=== PATIENT | female | born 2005 | race Caucasian/White ===

== ENCOUNTER 2024-12-13 15:25 | Outpatient (CLI) | payer MEDICAID, SELFPAY ==
--- OUTSIDE RECORDS SUMMARY | 2024-12-13 15:27 | XMS_ITS | Data Portability ---
Author Organization [facility],, Main Office Address [address] [place] [address] Assessment Encounter Date Assessment Date Assessment LastModified by Organization Details LastModified Time 07/07/2023 07/07/2023 Annual gynecological exam performed. Patient will come back in a year unless there are new symptoms. [email or web address] Not available 07/07/2023 09:35:47 07/11/2024 07/11/2024 Annual gynecological exam performed. Patient will come back in a year unless there are new symptoms. [email or web address] Not available 07/11/2024 15:37:17 10/26/2024 10/26/2024 Patient presented for medication refill. Patient tolerating medication well at current dose without adverse effects. Refilled as below. Discussed plan with patient, who expressed understanding. Follow up as noted below. [email or web address] Not available 10/29/2024 12:12:22 Plan of Treatment Reminders Order Date Submit Date Provider Last Modified By Organization Details Last Modified Time Details Appointments ANNUAL JOURNEYMAN MOLDER 2024 03:30P GIGI Friedman Not available Not available Not available Lab urinalysi s, dipstick 2024 025 [facility] Main Office, [address], [place], [address], 10/26/2024 16:24:40 test, urine 2024 025 [facility] Main Office, [address], [place], [address], 10/26/2024 16:24:40 urinalysi s, dipstick 2022 023 [facility] Main Office, [address], [place], [address], 07/07/2023 21:37:00 test, urine 2022 023 [facility] Main Office, [address], [place], [address], 07/07/2023 21:37:00 urinalysi s, dipstick 2022 023 [place] Main Office, [address], [place], [address], 04/21/2023 12:09:40 test, urine 2022 023 [facility] Office, [address], [place], [address], 04/21/2023 12:09:00 urinalysi s, dipstick 2022 023 [facility] Main Office, [address], [place], [address], 03/05/2023 17:52:00 test, urine 2022 023 [facility] Main Office, [address], [place], [address], 03/05/2023 17:52:00 Referral None recorded. Procedures None recorded. Surgeries None recorded. Imaging None recorded. Medication Orders .5 () 1.5 mg-30 mcg (21)/75 mg (7) tablet 2024 025 [facility], [address] [place], [address], 12/13/2024 11:49:35 09/12 (28) 1 mg-20 mcg (21)/75 mg (7) tablet 2022 023 [facility], [address] [place], [address], 07/11/2024 15:46:46 Patient TargetsNo targets recorded. Patient InstructionsNo instructions recorded. Reason for Referral None Reported. Results Created Date Observation Date Name Description Value Unit Range Abnormal Flag Note LastModifiedBy Organization Detail LastModifiedTime 02/18/2002/17/2023 urina lysis , dipst ick Leukocytes trace Not Available Main Of fice [address], [place], [address], 02/17/2023 10:11:13 02/18/20 23 02/17/2023 urina lysis , dipst ick Nitrite negati ve Not Available Main Office [address], [place], [address], 02/17/2023 10:11:13 02/18/20 23 02/17/2023 urina lysis , dipst ick Urobilinogen - Not Available Main Office [address], [place], [address], 02/17/2023 10:11:13 02/18/20 23 02/17/2023 urina lysis , dipst ick Protein - Not Available Main Offic e [address], [place], [address], 02/17/2023 10:11:13 02/18/20 23 02/17/2023 urina lysis , dipst ick pH 6.0 Not Available Main Offic e [address], [place], [address], 02/17/2023 10:11:13 02/18/20 23 02/17/2023 urina lysis , dipst ick Blood - Not Available Main Offic e [address], [place], [address], 02/17/2023 10:11:13 02/18/20 23 02/17/2023 urina lysis , dipst ick Specific De Pere 1.005 Not Available Main O ffice [address], [place], [address], 02/17/2023 10:11:13 02/18/20 23 02/17/2023 urina lysis , dipst ick Ketone - Not Available Main Offic e [address], [place], [address], 02/17/2023 10:11:13 02/18/20 23 02/17/2023 urina lysis , dipst ick Bilirubin - Not Available Main Off ice [address], [place], [address], 02/17/2023 10:11:13 02/18/20 23 02/17/2023 urina lysis , dipst ick Glucose - Not Available Main Offic e [address], [place], [address], 02/17/2023 10:11:13 02/18/20 23 02/17/2023 pregn atul test, urine HCG negati ve Not Available Main Office [address], [place], [address], 02/17/2023 10:11:22 04/21/20 23 04/21/2023 pregn atul test, urine HCG positi ve Not Available Main Office [address], [place], [address], 04/21/2023 10:15:49 04/21/20 23 04/21/2023 urina lysis , dipst ick Leukocytes - Not Available Main Of fice [address], [place], [address], 04/21/2023 10:15:20 04/21/20 23 04/21/2023 urina lysis , dipst ick Nitrite negati ve Not Available Main Office [address], [place], [address], 04/21/2023 10:15:20 04/21/20 23 04/21/2023 urina lysis , dipst ick Urobilinogen - Not Available Main Office [address], [place], [address], 04/21/2023 10:15:20 04/21/20 23 04/21/2023 urina lysis , dipst ick Protein - Not Available Main Offic e [address], [place], [address], 04/21/2023 10:15:20 04/21/20 23 04/21/2023 urina lysis , dipst ick pH 6.0 Not Available Main Offic e [address], [place], [address], 04/21/2023 10:15:20 04/21/20 23 04/21/2023 urina lysis , dipst ick Blood - Not Available Main Offic e [address], [place], [address], 04/21/2023 10:15:20 04/21/20 23 04/21/2023 urina lysis , dipst ick Specific De Pere 1.005 Not Available Main O ffice [address], [place], [address], 04/21/2023 10:15:20 04/21/20 23 04/21/2023 urina lysis , dipst ick Ketone - Not Available Main Offic e [address], [place], [address], 04/21/2023 10:15:20 04/21/20 23 04/21/2023 urina lysis , dipst ick Bilirubin - Not Available Main Off ice [address], [place], [address], 04/21/2023 10:15:20 04/21/20 23 04/21/2023 urina lysis , dipst ick Glucose - Not Available Main Offic e [address], [place], [address], 04/21/2023 10:15:20 07/07/20 23 07/08/2023 PAP TEST THIN PREP Pap test thin prep Negati ve for Intrae pithel ial Lesion or Malign atul normal ACCES KWESI #: [id number] Sourc e: Cervi monika/E ndoce rvica l LMP: [id number] Date Taken : 07/07 Speci men Type: ThinP rep Vial Date Repor caden: 07/08 Clini monika Data: Last Pap: wnl (1108 2021) Cytot ech: Fatou Ames, CT( CP) Date Repor caden: 07/08 Speci men Adequ acy: Satis facto ry for evalu ation Endoc ervic al/tr ansfo rmati on zone compo nent prese nt Gener al Categ oriza tion: NEGAT LYLY FOR INTRA EPITH ELIAL LESIO N OR MALIG ALEIDA This speci men has been samira zed by the ThinP rep Imagi ng Syste m, an inter activ e compu ter syste m which conrad ts the lab in the [facility] of ThinP rep Pap Test slide s. Follo wing imagi ng, the slide was revie wed by a Cytot echno logis t and/o r Patho logis t. End of Repor t Techn ical servi geraldo provi ded by [facility], [employer], d/b/a Lindsey jarrett, [address] [place] [address] Bryson Hernández MD, Labor atory Direc tor. Case revie wed and diagn osis rende red at [facility], [employer], d/b/a Lindsye jarrett, [address] [place] [address] Bryson Hernández MD, Labor atory Direc tor. CONFI DENTI AL Not Available [facility]) [address], [place], [address], 07/08/2023 20:16:15 07/07/20 23 07/07/2023 pregn atul test, urine HCG negati ve Not Available Main Office [address], [place], [address], 07/07/2023 09:37:59 07/07/2007/07/2023 urina lysis , dipst ick Leukocytes - Not Available Main Of fice [address], [place], [address], 07/07/2023 09:37:52 07/07/2007/07/2023 urina lysis , dipst ick Nitrite negati ve Not Available Main Office [address], [place], [address], 07/07/2023 09:37:52 07/07/2007/07/2023 urina lysis , dipst ick Urobilinogen - Not Available Main Office [address], [place], [address], 07/07/2023 09:37:52 07/07/2007/07/2023 urina lysis , dipst ick Protein - Not Available Main Offic e [address], [place], [address], 07/07/2023 09:37:52 07/07/2007/07/2023 urina lysis , dipst ick pH 6.0 Not Available Main Offic e [address], [place], [address], 07/07/2023 09:37:52 07/07/2007/07/2023 urina lysis , dipst ick Blood - Not Available Main Offic e [address], [place], [address], 07/07/2023 09:37:52 07/07/20 23 07/07/2023 urina lysis , dipst ick Specific De Pere 1.030 Not Available Main O ffice [address], [place], [address], 07/07/2023 09:37:52 07/07/20 23 07/07/2023 urina lysis , dipst ick Ketone - Not Available Main Offic e [address], [place], [address], 07/07/2023 09:37:52 07/07/20 23 07/07/2023 urina lysis , dipst ick Bilirubin - Not Available Main Off ice [address], [place], [address], 07/07/2023 09:37:52 07/07/20 23 07/07/2023 urina lysis , dipst ick Glucose - Not Available Main Offic e [address], [place], [address], 07/07/2023 09:37:52 07/11/20 24 07/13/2024 PAP TEST THIN PREP Pap test thin prep Negati ve for Intrae pithel ial Lesion or Malign atul normal ACCES KWESI #: [id number] [facility] e: Cervi monika/E ndoce rvica l LMP: [id number] Date Taken : 07/11 Speci men Type: ThinP rep Vial Date Repor caden: 07/13 Clini monika Data: Last Pap: wnl (1113 2022) Cytot ech: Ophelia Enciso , FLAQUITO( CP) Date Repor caden: 07/13 Speci men Adequ acy: Satis facto ry for evalu ation Endoc ervic al/tr ansfo rmati on zone compo nent prese nt Gener al Categ oriza tion: NEGAT LYLY FOR INTRA EPITH ELIAL LESIO N OR MALIG ALEIDA Comme nts/R ecomm endat ions: Blood prese nt This speci men has been samira zed by the Thin rep Imagi ng Syste m, an inter activ e compu ter syste m which conrad ts the lab in the [facility] of ThinP rep Pap Test slide s. Follo wing imagi ng, the slide was revie wed by a Cytot echno logis t and/o r Patho logis t. End of Repor t Techn ical servi geraldo provi ded by [facility] log[facility] [employer], [facility], [address] [place] [address] Sathya ovalle MD, Merged With [facility] atory Dire tor. Case revie wed and diagn osis rende red at [facility] Patho logis [facility], d[facility]b/a [facility], [address] [place] [address] Sathya ovalle MD, Labor atory Dire tor. CONFI DENTI AL Not Available [facility] ([facility]) [address], [place], [address], 07/13/2024 11:57:56 07/11/20 24 07/16/2024 TERESA STENE BERLIN androstenedi one 1.295 NG/mL 0.260- 2.140 INTER PRETI VE INFOR MATIO N: Teresa stene berlin , Femal es 18 years and older Post- menop ausal : 0.13- 0.82 ng/mL Acces s compl ete set of age- and/o r gende r-spe cific refer ence inter vals for this test in the [employer] [facility] Direc tory ([employer] lab.c om). This test was devel oped and its perfo rmanc e kiesha cteri stics deter mined by [facility] atori es. It has not been clear ed or appro yoshi by the US Food and Drug Admin istra tion. This test was perfo rmed in a CLIA certi fied labor atory and is inten ded for clini monika purpo ses. Perfo rmed By: [facility] at[facility] es [address] [place] [address] Labor atory Direc tor: Ramiro bruce MD, PhD CLIA Numbe r: [id number] Not Available [facility]) [facility] [address], [place], [address], 07/16/2024 12:17:56 07/11/20 24 07/12/2024 TESTO STERO NE, FREE, BIOAV AILAB LE, AND TOTAL AND SHBG testosterone total 31.90 NG/dL 8.00-4 8.00 Not Available [facility] ([facility]) [facility] [address], [place], [address], 07/16/2024 12:17:57 07/11/20 24 07/12/2024 TESTO STERO NE, FREE, BIOAV AILAB LE, AND TOTAL AND SHBG sex hormone binding globulin (shbg) 34.4 nmol/ L 24.6-1 22.0 Not Available [facility] ([facility]) [address] [place] [address] [address], [place], [address], 07/16/2024 12:17:57 07/11/20 24 07/12/2024 TESTO STERO NE, FREE, BIOAV AILAB LE, AND TOTAL AND SHBG free testosterone , percent 1.72 % 1.60-2 .90 Not Available [facility] ([facility]) [address] [place] [address] [address], [place], [address], 07/16/2024 12:17:57 07/11/20 24 07/12/2024 TESTO STERO NE, FREE, BIOAV AILAB LE, AND TOTAL AND SHBG free testosterone (calculation ) 5 pg/mL 1-7 Not Available [facility] ([facility]) [address], [place], [address], 07/16/2024 12:17:57 07/11/20 24 07/12/2024 TESTO STERO NE, FREE, BIOAV AILAB LE, AND TOTAL AND SHBG testosterone bioavailable 13 NG/dL 2-21 Not Available [facility] ([facility]) [address] [place] [address] [address], [place], [address], 07/16/2024 12:17:57 07/11/20 24 07/12/2024 PROLA CTIN prolactin 13.40 NG/mL 4.79-2 3.30 Not Available [facility] ([facility]) [address] [place] [address] [address], [place], [address], 07/16/2024 12:17:58 07/11/20 24 07/12/2024 PROGE STERO NE progesterone 4.48 NG/mL Proge stero ne Refer ence Range Healt hy women Folli cular phase 0.057 - 0.893 Ovula tion phase 0.121 - 12.0 Lutea l phase 1.83 - 23.9 Postm enopa use <0.05 - 0.126 Healt hy pregn ant women 1st trime ster 11.0 - 44.3 2nd trime ster 25.4 - 83.3 3rd trime ster 58.7 - 214 Not Available [facility] ([facility]) [address] [place] [address] [address], [place], [address], 07/16/2024 12:17:58 07/11/20 24 07/12/2024 LUTEI NIZIN G HORMO NE luteinizing hormone 12.50 mIU/m L LH Refer ence Range Men: 1.7 - 8.6 Women : Folli cular phase 2.4 - 12.6 Ovula tion phase 14.0 - 95.6 Lutea l phase 1.0 - 11.4 Postm enopa use 7.7 - 58.5 Not Available [facility]) [address] [place] [address] [address], [place], [address], 07/16/2024 12:17:59 07/11/20 24 07/12/2024 FSH FSH 4.34 mIU/m L FSH Refer ence Range Men: 1.5 - 12.4 Women : Folli cular phase 3.5 - 12.5 Ovula tion phase 4.7 - 21.5 Lutea l phase 1.7 - 7.7 Postm enopa use 25.8 - 134.8 Not Available [facility]) [address] [place] [address] [address], [place], [address], 07/16/2024 12:17:59 07/11/20 24 07/12/2024 ESTRA DIOL estradiol 94 pg/mL Estra diol Refer ence Range Healt hy women Folli cular phase 12.4 - 233 Ovula tion phase 41.0 - 398 Lutea l phase 22.3 - 341 Postm enopa use <5 - 138 Healt hy pregn ant women 1st trime ster 154 - 3243 2nd trime ster 1561 - 95843 3rd trime ster 8525 - >3000 0 Not Available [facility] ([facility]) [address] [place] [address] [address], [place], [address], 07/16/2024 12:18:00 07/11/20 24 07/12/2024 TSH TSH 1.86 mU/L 0.43-5 .25 Not Available [facility]) [address] [place] [address] [address], [place], [address], 07/16/2024 12:18:00 07/11/20 24 07/12/2024 THYRO XINE FREE (FREE T4) thyroxine free (free T4) 1.19 NG/dL 0.86-1 .76 Not Available [facility]) [address] [place] [address] [address], [place], [address], 07/16/2024 12:18:01 07/11/20 24 07/12/2024 INSUL IN TOTAL RANDO M insulin total random 17.5 uIU/m L 2.6-24 .9 Not Available [facility] ([facility]) [address], [place], [address], 07/16/2024 12:18:01 07/11/20 24 07/12/2024 DHEA- SULFA TE DHEA-sulfate 238 ug/dL 148-40 7 Not Available [facility] ([facility]) [address], [place], [address], 07/16/2024 12:18:02 07/11/20 24 07/12/2024 BETA- HCG, SERUM , (WALTER TITAT LYLY) beta-HCG, serum, (quantitativ e) <1 mIU/m L hCG Refer ence Range s: Male: <0.2- 2.6 mIU/m L Nonpr egnan t Femal e: <0.2- 5 mIU/m L Post- menop ausal Femal e: <0.2- 8.3 mIU/m L Aruna l Pregn atul hCG Range s: Week 3: 5.8-7 1.2 mIU/m L Week 4: 9.5-7 50 mIU/m L Week 5: 217-7 138 mIU/m L Week 6: 158-3 1795 mIU/m L Week 7: 3697- 26829 3 mIU/m L Week 8: [address] -[address] 71 mIU/m L Week 9: [address] 10 mIU/m L Week 10: [address] 77 mIU/m L Week 12: [address] -[address] 12 mIU/m L Week 14: [address] 0 mIU/m L Week 15: [address] 1 mIU/m L Week 16: 6640- 70591 mIU/m L Week 17: 8294- 31381 mIU/m L Week 18: 6699- 25029 mIU/m L Not Available [facility] ([facility]) [address], [place], [address], 07/16/2024 12:18:02 07/11/20 24 07/12/2024 ANTI MULLE RHYS HORMO NE anti mullerian hormone 3.92 NG/mL 1.22-1 1.70 Not Available [facility] ([facility]) [address], [place], [address], 07/16/2024 12:18:03 07/11/20 24 07/15/2024 17-HY DROXY PROGE STERO NE 17-hydroxypr ogesterone 120.30 NG/dL <=206. 00 INTER PRETI VE INFOR MATIO N for 17-Hy droxy proge stero ne in femal es: Folli cular 15 to 70 ng/dL Lutea l 35 to 290 ng/dL Acces s compl ete set of age- and/o r gende r-spe cific refer ence inter vals for this test in the [place] [facility]ire[facility] tory ([employer] lab.c om). This test was devel oped and its perfo rmanc e kiesha cteri stics deter mined by [employer] [facility] atori es. It has not been clear ed or appro yoshi by the US Food and Drug Admin istra tion. This test was perfo rmed in a CLIA certi fied labor atory and is inten ded for clini monika purpo ses. Perfo rmed By: [facility] atori es [address] [place] [address] Labor atory Direc tor: Ramiro bruce MD, PhD CLIA Numbe r: [id number] Not Available [facility] ([facility]) [address], [place], [address], 07/16/2024 12:18:03 10/27/19 25 10/26/2024 urina lysis , dipst ick Leukocytes - Not Available Main Of fice [address], [place], [address], 10/26/2024 15:59:37 10/27/19 25 10/26/2024 urina lysis , dipst ick Nitrite negati ve Not Available Main Office [address], [place], [address], 10/26/2024 15:59:37 10/27/19 25 10/26/2024 urina lysis , dipst ick Urobilinogen - Not Available Main Office [address], [place], [address], 10/26/2024 15:59:37 10/27/19 25 10/26/2024 urina lysis , dipst ick Protein - Not Available Main Offic e [address], [place], [address], 10/26/2024 15:59:37 10/27/19 25 10/26/2024 urina lysis , dipst ick pH 6.0 Not Available Main Offic e [address], [place], [address], 10/26/2024 15:59:37 10/27/19 25 10/26/2024 urina lysis , dipst ick Blood uric acid- 50 Not Available Main Office [address], [place], [address], 10/26/2024 15:59:37 10/27/19 25 10/26/2024 urina lysis , dipst ick Specific De Pere 1.010 Not Available Main O ffice [address], [place], [address], 10/26/2024 15:59:37 10/27/19 25 10/26/2024 urina lysis , dipst ick Ketone - Not Available Main Offic e [address], [place], [address], 10/26/2024 15:59:37 10/27/19 25 10/26/2024 urina lysis , dipst ick Bilirubin - Not Available Main Off ice [address], [place], [address], 10/26/2024 15:59:37 10/27/19 25 10/26/2024 pregn atul test, urine HCG negati ve Not Available Main Office [address], [place], [address], 10/26/2024 15:59:41 Result Notes None recorded. Problems No Known Problems Procedures Surgical History Date Name Laterality Status Provider Name and Address Organization Details Recorded Time Date of Last Pap Smear completed Zahraa Davey [facility], 07/11/2024 15:37:59 extraction of wisdom tooth completed Roxane Lux [facility], 06/12/2021 14:54:31 Imaging Results None recorded. Procedure Notes None recorded. Medical Equipment None Reported. Allergies No known drug allergies Medications Name Sig Start Date Stop Date Status Note LastModified by Organization Details LastModified Time amoxicillin 500 mg capsule TAKE ONE CAPSULE BY MOUTH THREE TIMES DAILY FOR 10 DAYS 07/11 completed Not Available Not Available Not Available promethazin e-DM 6.25 mg-15 mg/5 mL oral syrup Take 1 teaspoonf ul by mouth every 6 hours as needed for cough 07/11 completed Not Available Not Available Not Available neomycin-po lymyxin-hyd rocort 3.5 mg/mL-10,00 0 unit/mL-1 % ear solution INSTILL 10 DROPS INTO BOTH EARS BY OTIC ROUTE EVERY 6 HOURS FOR 10 DAYS 07/11 completed Not Available Not Available Not Available prednisone 10 mg tablet 06/12 completed Not Available Not Available Not Available azithromyci n 250 mg tablet TAKE 2 TABLETS BY MOUTH ON DAY 1, THEN TAKE 1 TABLET DAILY ON DAYS 2-5 07/11 completed Not Available Not Available Not Available fluconazole 150 mg tablet TAKE 1 TABLET BY MOUTH ONCE DAILY 07/02 completed Not Available Not Available Not Available prednisone 20 mg tablet TAKE ONE TABLET BY MOUTH THREE TIMES DAILY FOR 3 DAYS active Not Available Not Available No t Available metronidazo le 500 mg tablet Take 1 tablet every 12 hours by oral route for 7 days. 07/02 completed Not Available Not Available Not Available norethindro ne 1 mg-ethinyl estradiol 20 mcg (21)-iron 75 mg (7) tablet TAKE ONE TABLET BY MOUTH ONCE DAILY 07/11 completed Not Available Not Available Not Available sulfamethox azole 800 mg-trimetho prim 160 mg tablet TAKE 1 TABLET BY MOUTH TWICE DAILY 07/02 completed Not Available Not Available Not Available guaifenesin 200 mg tablet 07/02 completed Not Available Not Available Not Available meloxicam 7.5 mg tablet TAKE ONE TABLET BY MOUTH EVERY DAY active Not Available Not Available No t Available phenazopyri dine 100 mg tablet 06/12 completed Not Available Not Available Not Available oseltamivir 75 mg capsule 07/02 completed Not Available Not Available Not Available bromphenira mine-pseudo ephedrine-D M 2 mg-30 mg-10 mg/5 mL oral syrup 07/02 completed Not Available Not Available Not Available amoxicillin 500 mg-potassiu m clavulanate 125 mg tablet 06/12 completed Not Available Not Available Not Available neomycin-po lymyxin-hyd rocort 3.5 mg-10,000 unit/mL-1 % ear drops,susp instil FOUR DROPS into affected ear(s) three times daily 07/11 completed Not Available Not Available Not Available cyclobenzap rine 5 mg tablet t1tr BY MOUTH THREE TIMES DAILY NEEDED active Not Available Not Available No t Available .01/20 (28) 1.5 mg-30 mcg (21)/75 mg (7) tablet Take 1 tablet every day by oral route. active Not Available Not Available No t Available nitrofurant oin monohydrate /macrocryst als 100 mg capsule 06/12 completed Not Available Not Available Not Available Vitals Date Recorded Body height Body mass index (BMI) Body mass index (BMI) Percentile per age and sex Body weight Heart rate Body temperature Systolic blood pressure Diastolic blood pressure Provider Name and Address Organization Details Last Updated DateTime 3 165.1 cm 36.1 kg/m2 97 % 54766.5 4 g 71 /min 97.2 [degF] 110 mm[Hg] 68 mm[Hg] [facility], 3 10:10:31 Date Recorded Body height Body mass index (BMI) Body mass index (BMI) Percentile per age and sex Body weight Heart rate Body temperature Systolic blood pressure Diastolic blood pressure Provider Name and Address Organization Details Last Updated DateTime 3 165.1 cm 36.6 kg/m2 97 % 49003.6 g 68 /min 97 [degF] 111 mm[Hg] 76 mm[Hg] [facility], 3 10:14:53 Date Recorded Body height Body mass index (BMI) Body mass index (BMI) Percentile per age and sex Body weight Heart rate Body temperature Systolic blood pressure Diastolic blood pressure Provider Name and Address Organization Details Last Updated DateTime 3 165.1 cm 36.8 kg/m2 97 % 138097. 91 g 68 /min 97.5 [degF] 106 mm[Hg] 74 mm[Hg] [facility], 3 09:36:12 Date Recorded Body height Body mass index (BMI) Body weight Heart rate Body temperature Systolic blood pressure Diastolic blood pressure Provider Name and Address Organization Details Last Updated DateTime 4 165.1 cm 37.4 kg/m2 342706. 28 g 70 /min 97.5 [degF] 106 mm[Hg] 76 mm[Hg] [facility], 4 15:37:35 Date Recorded Body height Body mass index (BMI) Body weight Heart rate Body temperature Systolic blood pressure Diastolic blood pressure Provider Name and Address Organization Details Last Updated DateTime 5 165.1 cm 37.9 kg/m2 333825. 62 g 71 /min 97.3 [degF] 116 mm[Hg] 73 mm[Hg] [facility], 5 15:59:06 Social History Question Answer Notes LastModified by Organizat ion Details LastModified Time Tobacco Smoking Status Never Smoker Roxane Lux [facility], 06/12/2021 14:43:00 Do You Have An Advance Directive? No [email or web address] Information n ot available 06/12/2021 What Is Your Level Of Alcohol Consumption? None Information not available 06/12/2021 Are You Currently Sexually Active With Anyone Who Has Traveled (within The Last 12 Weeks) To A Zika-affected Area? No [email or web address] Information not available 06/12/2021 Are You Blind Or Do You Have Difficulty Seeing? No [email or web address] Information n ot available 06/12/2021 Is Blood Transfusion Acceptable In An Emergency? Yes [email or web address] Information not available 06/12/2021 Are You Or Have You Been Involved With Bullying? No [email or web address] Information not available 06/12/2021 What Is Your Level Of Caffeine Consumption? None [email or web address] Information not available 06/12/2021 What Type Of Lobbyist Do You Use? None [email or web address] Information not available 06/12/2021 In The 14 Days Before Symptom Onset, Have You Had Close Contact With A Laboratory-confirm ed COVID-19 While That Case Was Ill? No Information n ot available 04/21/2023 In The 14 Days Before Symptom Onset, Have You Had Close Contact With A Person Who Is Under Investigation For COVID-19 While That Person Was Ill? No Information not available 04/21/2023 Have You Been To An Area Known To Be High Risk For COVID-19? No Information not available 04/21/2023 Are You Currently Employed? Yes [email or web address] Information not available 06/12/2021 Are You Deaf Or Do You Have Serious Difficulty Hearing? No [email or web address] Information not available 06/12/2021 What Type Of Diet Are You Following? REGULAR [email or web address] Information n ot available 06/12/2021 Have You Processed Blood Or Body Fluids From An Ebola Virus Disease Patient Without Appropriate PPE? No [email or web address] Information not available 06/12/2021 Do You Reside In Or Have You Traveled To An Area Where Ebola Virus Transmission Is Active? No [email or web address] Information not available 06/12/2021 What Is The Highest Grade Or Level Of School You Have Completed Or The Highest Degree You Have Received? [id number] [email or web address] Information not available 06/12/2021 Have There Been Any Changes To Your Family Or Social Situation? No Information no t available 06/12/2021 What Is The Fluoride Status Of Your Home? Unknown Information not available 06/12/2021 Are There Any Guns Present In Your Home? No [email or web address] Information not available 06/12/2021 Have You Recently Or Are You Planning To Travel To An Area With Zika Virus? No [email or web address] Information not available 06/12/2021 What Is Your Home Situation? Other [email or web address] Information not available 06/12/2021 Do You Use Insect Repellent Routinely? No [email or web address] Information not available 06/12/2021 Do You Have A Medical Power Of Remote Sensing Technologist? No [email or web address] Information not available 06/12/2021 What Was The Date Of Your Most Recent Tobacco Screening? 06/12/2021 Information not available 04/21/2023 How Many Children Do You Have? 0 [email or web address] Information not available 06/12/2021 Do You Have Any Pets? No [email or web address] Information not available 06/12/2021 Do You Use Protection During Sex? Always Information not available 06/12/2021 What Is Your Relationship Status? Single [email or web address] Information not available 06/12/2021 Are You Sexually Active? Yes [email or web address] Information not available 06/12/2021 Do You Have Smoke And Carbon Monoxide Detectors In Your Home? Yes [email or web address] Information not available 06/12/2021 Are You Passively Exposed To Smoke? No [email or web address] Information no t available 06/12/2021 Are There Any Smokers In Your House? No [email or web address] Information not available 06/12/2021 Do You Feel Stressed (tense, Restless, Nervous, Or Anxious, Or Unable To Sleep At Night)? [id number] [email or web address] Information not available 06/12/2021 Do You Use Any Illicit Or Recreational Drugs? No Information not available 04/21/2023 Do You Use Sunscreen Routinely? No Information not available 06/12/2021 Has Tobacco Cessation Counseling Been Provided? No [email or web address] Information not available 06/12/2021 Sex: Female Functional Status Question Answer Note LastModified by Organizat ion Details LastModified Time Do you have difficulty walking or climbing stairs? No Information not available 06/12/2021 Do you have transportation difficulties? No [email or web address] Information not available 06/12/2021 Are you able to walk? YESWOREST [email or web address] Information not available 06/12/2021 Do you have difficulty doing errands alone? No [email or web address] Information not available 06/12/2021 Are you able to care for yourself? Yes [email or web address] Information n ot available 06/12/2021 Do you have difficulty dressing or bathing? No [email or web address] Information not available 06/12/2021 What is your exercise level? Occasional [email or web address] Information not available 06/12/2021 Mental Status Question Answer Note LastModified by Organization D etails LastModified Time Do you have difficulty concentrating, remembering or making decisions? No [email or web address] Information no t available 06/12/2021 Family History Relationship Description Onset Age of this Age Resolved Age Notes LastModified by Organization Details LastModified Time Father Diabetes mellitus [email or web address] Not available 05/25 14:41:52 Medical History Condition Response Coronary Artery Disease N Other N Gout N Blood Diseases N Kidney Stones N Hyperthyroidism N Enlarged Prostate N Blood Transfusion N Dermatologic Disorders N Depression N COPD N Gestational Diabetes N Anxiety Disorder N Autoimmune disease N Muscle, Joint, or Bone Problems N Obesity N Vision or Eye Problems N Arthritis N Infertility N Polyps N Mental Disorder N Cancer N Varicosities N Stroke N Neurologic/Epilepsy N Headaches N Fibromyalgia N Kidney Disease N Heart Problems N Ear or Hearing Problems N Hospitalizations N Acne N Eating Disorder N Skin Problems N MRSA exposure N Constipation N Heartburn N Art (IVF or FET) N Bladder Problems N Bleeding Disorder N Tuberculosis N AIDS/HIV N G.E.R.D N Asthma N Trauma/Violence N Hepatitis N Pulmonary Embolism N Chronic Ear Infections N Chicken Pox N Autism Spectrum Disorder (ASD) N Thrombophilias N Allergies (Food, seasonal, environmental ) N Colon Cancer N Drug/Latex Allergies/Reactions N Breast Cancer N Lung Disease N Hypothyroidism N Defects or Inherited Disease N Developmental or Behavioral Disorders N Breast Problem N Difficulty Swallowing N Hematologic disorders N Anesthesia Complications N History of STI N Deep Vein Thrombosis N Polycystic ovary syndrome N Meniere's disease N History of abnormal pap N Endometriosis N High Cholesterol N Liver Disease N Allergies/Hayfever N Kidney Problems N Thyroid Problems N GI Problems N ADD/ADHD N Anemia N Mental Illness N Psychiatric Illness N Diabetes N Ovarian Cancer N Pulmonary (TB, Asthma) N Seizures/Epilepsy N Congestive Heart Failure (CHF) N Hyperlipidemia N Eczema N Diverticulitis N Abuse/Domestic Violence N Depression/ depression N Heart Disease N Hypertension N Pre-Eclampsia N Osteoporosis N Gynecological History Statement/Question Response Abnormal Pap N Flow Moderate Date of LMP 06/20/2024 STIs/STDs N HPV Vaccine N Duration of Flow (days) 5 Age at Menarche 11 Current Control Method BCPs Frequency of Cycle (Q days) 28 Sexually Active? Y Menses Monthly Y Date of Last Pap Smear 07/11/2024 Sexual Problems? N LMP Definite Obstetrics History GPAL:G 0 P 0 0 0 0 Past Encounters Encounter ID Performer Location Encounter Start Date Encounter Closed Date Diagnosis/Indication Diagnosis SNOMED-CT Code Diagnosis ICD10 Code Diagnosis Note [id number] Martin Landaverde DO Main Office [address] [place] [address] 06/12/2021 14:23:46 06/12/2021 15:28:14 Gynecologic examination 86555889 Z01.411 pap Venereal d isease screening 630918638 Z11.3 cx/vag panel Education about sexually transmitted disease prevention 804063666 Z70.8 Vaginal di scharge problem 470834475 N89.8 Bacterial vaginosis 4197 99144 N76.0 Screening for mental disorders 371399542 Z13.89 [id number] Martin Landaverde DO Main Office [address] [place] [address] 07/02/2022 08:32:46 07/02/2022 09:09:35 Gynecologic examination 87447288 Z01.411 pap Screening for mental disorders 461899872 Z13.89 [id number] Martin Landaverde DO Main Office [address] [place] [address] 10/22/2022 09:43:21 10/22/2022 10:33:36 Cyst of right ovary 1121097502 6013652 N83.[address] TV u/s scheduled. Pain in pelvis 76162493 R10.2 mild, intermitte nt at this time. [id number] Martin Landaverde DO Main Office [address] [place] [address] 10/29/2022 08:51:35 10/29/2022 09:41:16 Pain in pelvis 62954513 R10.2 Cyst of right ovary 1223 626398 7309025 N83.291 Contracept ion care management 780820338 Z30.011 [id number] Martin Landaverde DO Main Office [address] [place] [address] 12/24/2022 13:34:10 12/24/2022 13:53:59 Pain in pelvis 33358920 R10.2 Cyst of right ovary 1223 683452 6701601 N83.291 Contracept ion care management 290604782 Z30.011 [id number] Martin Landaverde DO Main Office [address] [place] [address] 02/17/2023 10:07:48 02/17/2023 10:36:05 Pain in pelvis 48578592 R10.2 Large ovary 61970478 N83 .8 Cyst of left ovary 56737 73474 5641066 N83.292 [id number] Martin Landaverde DO Main Office [address] [place] [address] 04/21/2023 10:00:05 04/21/2023 10:53:29 Cyst of left ovary 8955620755 0973633 N83.292 improved Large ovary 10766078 N83 .8 [id number] Martin Landaverde DO Main Office [address] [place] [address] 07/07/2023 09:29:14 07/07/2023 09:51:35 Gynecologic examination 11807916 Z01.419 pap Screening for mental disorders 887889360 Z13.89 Renewal of prescription 948550915 Z76.0 [id number] Martin Landaverde DO Main Office [address] [place] [address] 07/11/2024 15:18:50 07/11/2024 15:59:04 Gynecologic examination 66150515 Z01.419 pap [id number] Martin Landaverde Main Office [address] [place] [address] 10/26/2024 15:48:15 10/26/2024 16:25:30 Renewal of prescription 105221511 Z76.0 Secondary dysmenorrhea 91129419 N94.5 contolled with new BC rx Pain in pelvis 29493889 R10.2 mild, intermitte nt at this time. Health Concerns Section Related Observation LastModified by Organization Detai ls LastModified Time None Recorded Concern Status LastModified by Organization Details LastModified Time None Recorded Advance Directives Directive N: Payers Encounter Date Sequence Insurance Name Policy Number Policy Hughes Covered Member ID Hughes Member ID Guarantor Name 02/17/2023 1 [place] [facility] [id number] Luisa [facility] 04/21/2023 1 [place] [facility] [id number] [facility] 07/07/2023 1 [place] [facility] [id number] [employer] [facility] 07/11/2024 1 [place] [id number] Luisa [facility] [id number] [employer] [facility] 10/26/2024 1 [facility]MEDICAID [facility]PLAC[facility] - [facility] Luisa [facility] [id number] [facility] Notes Date Note Type Note Provider Name and Address Organization Details Recorded Time 07/07/2023 text/html Annual GYNReport ed bypatient.History: no gynecologic complaints; no change in interval history Menstrual cycle:Normal menses Urinary symptoms:No hematuria; No incontinence Vulva:No genital lesion Vagina:Normal vaginal discharge Breast:No breast pain; No breast lump; No nipple discharge Current Contraception:Sati sfied with current contraception; Monogamous relationship Sexual complaints:No sexual complaints; No pain during intercourse; Normal libido Menopausal Symptoms:No menopausal symptoms; Normal vaginal lubrication Psychological symptoms:No depression; No anxiety; No PMDD Preventive measures:Followed with yearly pap smears DO [address], [place], [address], [facility], 07/07/2023 21:37:03 07/11/2024 text/html Annual GYNReport ed bypatient.History: was being followed for ovarian cysts while on low dose ocps. ran out of ocps last month. no pain since then Menstrual cycle:Normal menses Urinary symptoms:No hematuria; No incontinence Vulva:No genital lesion Vagina:Normal vaginal discharge Breast:No breast pain; No breast lump; No nipple discharge Sexual complaints:No sexual complaints; No pain during intercourse; Normal libido Menopausal Symptoms:No menopausal symptoms; Normal vaginal lubrication Psychological symptoms:No depression; No anxiety; No PMDD Preventive measures:Followed with yearly pap smears DO [address], [place], [address], [facility], 08/13/2024 10:02:03 10/26/2024 text/html f/u on new control pills. was having some painful periods and possible ovarian cysts and pain. changed BC. No problems since then. DO [address], [place], [address], [facility], 10/29/2024 12:13:13 OBGyn Episode No OBEpisode recorded.
--- OUTSIDE RECORDS SUMMARY | 2024-12-13 15:27 | XMS_ITS | Continuity of Care Document ---
Author Organization [facility],, Main Office Address [address] [place] [address] Assessment Encounter Date Assessment Date Assessment LastModified by Organization Details LastModified Time 10/26/2024 10/26/2024 Patient presented for medication refill. Patient tolerating medication well at current dose without adverse effects. Refilled as below. Discussed plan with patient, who expressed understanding . Follow up as noted below. [email or web address] Not available 10/29/2024 12:12:22 Plan of Treatment Reminders Order Date Submit Date Provider Last Modified By Organization Details Last Modified Time Details Appointments ANNUAL BLACKSMITH ASSISTANT 2024 03:30P GIGI Friedman Not available Not available Not available Lab urinalysi s, dipstick 2024 025 telma Main Office, [address], [place], [address], 10/26/2024 16:24:40 test, urine 2024 025 talia Main Office, [address], [place], [address], 10/26/2024 16:24:40 Referral None recorded. Procedures None recorded. Surgeries None recorded. Imaging None recorded. Medication Orders 1.5/30 (28) 1.5 mg-30 mcg (21)/75 mg (7) tablet 2024 025 AIMEE [facility], [address] [place], [address], 12/13/2024 11:49:35 Patient TargetsNo targets recorded. Patient InstructionsNo instructions recorded. Reason for Referral None Reported. Results Created Date Observation Date Name Description Value Unit Range Abnormal Flag Note LastModifiedBy Organization Detail LastModifiedTime 10/27/19 25 10/26/2024 urina lysis , dipst ick Leukocytes - Not Available Main Of fice [address], [place], [address], 10/26/2024 15:59:37 10/27/19 25 10/26/2024 urina lysis , dipst ick Nitrite negati ve Not Available Main Office [address], [place], [address], 10/26/2024 15:59:37 10/27/19 25 10/26/2024 urina lysis , dipst ick Urobilinogen - Not Available Main Office [address], [place], [address], 10/26/2024 15:59:37 10/27/19 25 10/26/2024 urina lysis , dipst ick Protein - Not Available Main Offic e [address], [place], [address], 10/26/2024 15:59:37 10/27/19 25 10/26/2024 urina lysis , dipst ick pH 6.0 Not Available Main Offic e [address], [place], [address], 10/26/2024 15:59:37 10/27/19 25 10/26/2024 urina lysis , dipst ick Blood uric acid- 50 Not Available Main Office [address], [place], [address], 10/26/2024 15:59:37 10/27/19 25 10/26/2024 urina lysis , dipst ick Specific Dameron 1.010 Not Available Main O ffice [address], [place], [address], 10/26/2024 15:59:37 10/27/19 25 10/26/2024 urina lysis , dipst ick Ketone - Not Available Main Offic e [address], [place], [address], 10/26/2024 15:59:37 10/27/19 25 10/26/2024 urina lysis , dipst ick Bilirubin - Not Available Main Off ice [address], [place], [address], 10/26/2024 15:59:37 10/27/19 25 10/26/2024 pregn atul test, urine HCG negati ve Not Available Main Office [address], [place], [address], 10/26/2024 15:59:41 Result Notes None recorded. Problems No Known Problems Procedures Surgical History Date Name Laterality Status Provider Name and Address Organization Details Recorded Time Date of Last Pap Smear completed Zahraa Davey [facility], 07/11/2024 15:37:59 extraction of wisdom tooth completed Roxane Lux [facility], 06/12/2021 14:54:31 Imaging Results [...] Not Available Not Available No t Available (28) 1.5 mg-30 mcg (21)/75 mg (7) [...] Updated DateTime 5 165.1 cm 37.9 kg/m2 231643. 62 g 71 /min 97.3 [degF] 116 mm[Hg] 73 mm[Hg] Zahraa Davey [facility], 5 15:59:06 Social History Question Answer Notes LastModified by Organizat ion Details LastModified Time Tobacco Smoking Status Never Smoker Roxane Lux [facility], 06/12/2021 14:43:00 Do You Have An Advance Directive? No Information n ot available 06/12/2021 What Is Your Level Of Alcohol Consumption? None [email or web address] Information not available 06/12/2021 Are You Currently Sexually Active With Anyone Who Has Traveled (within The Last 12 Weeks) To A Zika-affected Area? No [email or web address] Information not available 06/12/2021 Are You Blind Or Do You Have Difficulty Seeing? No [email or web address] Information n ot available 06/12/2021 Is Blood Transfusion Acceptable In An Emergency? Yes [email or web address] Information not available 06/12/2021 Are You Or Have You Been Involved With Bullying? No [email or web address] Information not available 06/12/2021 What Is Your Level Of Caffeine Consumption? None Information not available 06/12/2021 What Type Of Material Flow Engineer Do You Use? None [email or web address] Information not available 06/12/2021 In The 14 [...] available 04/21/2023 Are You Currently Employed? Yes [email or web address] Information not available 06/12/2021 Are You Deaf Or Do You Have Serious Difficulty Hearing? No [email or web address] Information not available 06/12/2021 What Type Of Diet Are You Following? REGULAR [email or web address] Information n ot available 06/12/2021 Have You Processed Blood Or Body Fluids From An Ebola Virus Disease Patient Without Appropriate PPE? No [email or web address] Information not available 06/12/2021 Do You Reside In Or Have You Traveled To An Area Where Ebola Virus Transmission Is Active? No [email or web address] Information not available 06/12/2021 What Is The Highest Grade Or Level Of School You Have Completed Or The Highest Degree You Have Received? LT71520-6 [email or web address] Information not available 06/12/2021 Have There Been Any Changes To Your Family Or Social Situation? No [email or web address] Information no t available 06/12/2021 What Is The Fluoride Status Of Your Home? Unknown [email or web address] Information not available 06/12/2021 Are There Any Guns Present In Your Home? No [email or web address] Information not available 06/12/2021 Have You Recently Or Are You Planning To Travel To An Area With Zika Virus? No [email or web address] Information not available 06/12/2021 What Is Your Home Situation? Other [email or web address] Information not available 06/12/2021 Do You Use Insect Repellent Routinely? No [email or web address] Information not available 06/12/2021 Do You Have A Medical Power Of Fountain Helper? No [email or web address] Information not available 06/12/2021 What Was The Date Of Your Most Recent Tobacco Screening? 06/12/2021 Information not available 04/21/2023 How Many Children Do You Have? 0 [email or web address] Information not available 06/12/2021 Do You Have Any Pets? No [email or web address] Information not available 06/12/2021 Do You Use Protection During Sex? Always [email or web address] Information not available 06/12/2021 What Is Your Relationship Status? Single [email or web address] Information not available 06/12/2021 Are You Sexually Active? Yes [email or web address] Information not available 06/12/2021 Do You Have Smoke And Carbon Monoxide Detectors In Your Home? Yes pdecdftvz68 Information not available 06/12/2021 Are You Passively Exposed To Smoke? No [email or web address] Information no t available 06/12/2021 Are There Any Smokers In Your House? No [email or web address] Information not available 06/12/2021 Do You Feel Stressed (tense, Restless, Nervous, Or Anxious, Or Unable To Sleep At Night)? CM5910-0 kaqtshzyr89 Information not available 06/12/2021 Do You Use Any Illicit Or Recreational Drugs? No Information not available 04/21/2023 Do You Use Sunscreen Routinely? No sheurgzfh53 Information not available 06/12/2021 Has Tobacco Cessation Counseling Been Provided? No Information not available 06/12/2021 Sex: Female Functional Status Question Answer Note LastModified by Organizat ion Details LastModified Time Do you have difficulty walking or climbing stairs? No pzhywjfkq72 Information not available 06/12/2021 Do you have transportation difficulties? No evjuzbubz79 Information not available 06/12/2021 Are you able to walk? YESWOREST qxnmyfdle59 Information not available 06/12/2021 Do you have difficulty doing errands alone? No Information not available 06/12/2021 Are you able to care for yourself? Yes Information n ot available 06/12/2021 Do you have difficulty dressing or bathing? No iylataffw41 Information not available 06/12/2021 What is your exercise level? Occasional gqugdvges51 Information not available 06/12/2021 Mental Status Question Answer Note LastModified by Organization D etails LastModified Time Do you have difficulty concentrating, remembering or making decisions? No llrfpcece43 Information no t available 06/12/2021 Family History Relationship Description Onset Age of this Age Resolved Age Notes LastModified by Organization Details LastModified Time Father Diabetes mellitus [email or web address] Not available 05/25 14:41:52 Medical History Condition Response Coronary Artery Disease N Gout N Other N Kidney Stones N Blood Diseases N Enlarged Prostate N Hyperthyroidism N Blood Transfusion N Dermatologic Disorders N [...] SNOMED-CT Code Diagnosis ICD10 Code Diagnosis Note [id number] Martin Landaverde DO Main Office [address] [place] [address] 10/26/2024 15:48:15 10/26/2024 16:25:30 Renewal of prescription 850647469 Z76.0 Secondary dysmenorrhea [id number] N94.5 contolled with new BC rx Pain in pelvis 08962386 R10.2 mild, intermitte nt at this time. Health Concerns Section Related Observation LastModified by Organization Detai ls LastModified Time None Recorded Concern Status LastModified by Organization Details LastModified Time None Recorded Payers Encounter Date Sequence Insurance Name Policy Number Policy Hughes Covered Member ID Hughes Member ID Guarantor Name 10/26/2024 1 [facility] (MEDICAID REPLACEMENT - HMO) Luisa Coronado [id number] Luisa Coronado Notes Date Note Type Note Provider Name and Address Organization Details Recorded Time 10/26/2024 text/html f/u on new control pills. was having some painful periods and possible ovarian cysts and pain. changed BC. No problems since then. Martin Landaverde, DO [address] [facility] [address], [place], [address], [facility], 10/29/2024 12:13:13 OBGyn Episode No OBEpisode recorded.
--- NOTE | 2024-12-13 15:30 | CT_ITS ---
FINAL REPORT TECHNIQUE: CT examination of the facial bones/sinuses was performed without intravenous contrast. Axial images with coronal and sagittal reconstructions were performed as well. This study was performed with techniques to keep radiation doses as low as reasonably achievable (ALARA). Individualized dose reduction techniques using automated exposure control or adjustment of mA and/or kV according to the patient's size were employed. CLINICAL HISTORY: pt states jaw pain x1 year COMPARISON: None FINDINGS: The paranasal sinuses are well aerated. There is no fracture. There are no air-fluid levels. There is flattening of the superior articular margin of the right mandibular condyle, which is asymmetric when compared to the contralateral mandibular condyle. This is best seen on image #39 of series 601. IMPRESSION: Unremarkable paranasal sinuses. There is flattening of the superior articular margin of the right mandibular condyle, asymmetric when compared to the contralateral mandibular condyle. Reviewed, Interpreted and Dictated by Checo Yañez MD Transcribed by Maddison Babcock Authenticated and [facility]
== END 2024-12-13 23:59 | disposition home or self-care (01) ==
LOC: RAD 15:26
PROVIDERS: PCP Nurse Practitioner; Visit Provider Nurse Practitioner
DX: M26.603 Bilateral temporomandibular joint disorder, unspecified (principal)
CPT/HCPCS: 70486

== ENCOUNTER 2024-12-14 15:18 | Outpatient (POV) | payer MEDICAID, SELFPAY ==
[2024-12-14 15:33] VITALS: BP 132/85; PULSE 110; RESP 18; O2SAT 97; BMI 35.7
--- NOTE | 2024-12-14 15:46 | A.OFFVIS_ITS ---
HPI Data of Consult Patient: new to practice Consult date: 12/14/24 Requesting Physician: Clara Douglas APRN Primary Care Provider: Serena Garcia APRN Consult Narrative Reason for consult: Left jaw pain, ear pain, TMJ dysfunction History of present illness: Ms. Coronado is a 19 year old female who presents today as a new patient. She is a referral from [facility] ear nose [facility] throat. Today she rates her pain a 2 out of 10 however does state that it will go to a 10 out of 10 with certain activities like eating or drinking. Patient states that she has been experiencing chronic left-sided jaw and ear pain that has been going on for at least 2 years since her sophomore year of college. Patient denies any specific injury or trauma that initially started the symptoms. She states that it was initially more occasionally from time to time with eating and that she would have some flareups however since October it went to constant. She states that it was a sharp painful sensation that was very tight in her jaw and would actually swell along the left side with left-sided ear pain. She states that any little bit of eating or drinking causes the flareups as well as talking. 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 She states when the flareups occur it is so painful that she is even brought to tears and there is nothing she can do to decrease the pain. Patient denies any popping or grinding of her teeth. Patient states that they have done multiple things to see if they can figure out what is going on however have gotten diagnosed with TMJ disorder. Patient states she has tried lpgo-ele-umonjll medications such as Tylenol and ibuprofen along with prescription meloxicam with minimal relief. Patient was prescribed Flexeril 5 mg and states this did seem to help significantly however she feels like she does not want to be on this on a regular basis especially with her teaching job. Patient is interested in any help we may be able to provide. Patient does state the pain interferes with her ability perform activities of daily living such as cooking and cleaning. CC: Clara Douglas APRN [facility] Disclaimer: The information contained in this section may have been updated after the patient was seen, as this information can be updated by other users. Medical History (Updated 12/14/24 @ 15:50 by Clara Douglas APRN) TMJ (dislocation of temporomandibular joint) Surgical History History of wisdom tooth extraction Family History (Updated 12/14/24 @ 15:35 by Lana Bashir RN) Other Unknown family medical history Social History (Updated 12/14/24 @ 15:36 by Lana Bashir RN) Smoking Status: Never smoker second hand exposure: Yes alcohol intake: never substance use type: denies use current occupational status: employed Travel in the last 8 weeks: None Review of Systems Review of Systems Review of systems:: pertinent systems reviewed and negative unless documented below Review of systems (narrative): Review of Systems: General: No recent weight changes, no fever, no sleep disturbances Respiratory: No cough, no shortness of air, no recurring pulmonary infections Cardiovascular/peripheral vascular: No chest pain, no palpitations, no edema, no shortness of breath Gastrointestinal: No new onset incontinence, normal bowel movements reported Genitourinary: No new onset incontinence Musculoskeletal: Left jaw pain, left ear pain Psychiatric: [Normal mood/affect] Neurological: [Denies weakness in extremities], [denies balance issues] Meds Home Medications and Allergies Home Medications ?Medication ?Instructions ?Recorded ?Confirmed ?Type cyclobenzaprine 5 mg tablet 5 mg PO TID PRN TMJ #30 tabs 11/24/24 12/14/24 Rx meloxicam 7.5 mg tablet 7.5 mg PO DIRECTED Pain 11/24/24 12/14/24 History norethindrone 1.5 mg-ethinyl 1 tab PO DIRECTED . 11/24/24 12/14/24 History estradiol 30 mcg(21)/iron 75 mg(7) tablet ( (28)) New Prescriptions to Start Prescriptions: Allergies Allergy/AdvReac Type Severity Reaction Status Date / Time No Known Allergies Allergy Verified 11/24/24 15:40 Objective Vital signs: Pulse Resp BP Pulse Ox O2 Del Method 110 H 18 132/85 97 Room Air 12/14/24 15:33 12/14/24 15:33 12/14/24 15:33 12/14/24 15:33 12/14/24 15:33 Narrative: Physical Exam: General: Alert and oriented x3, no acute distress, pleasant and cooperative Lungs: Respirations even and unlabored, symmetrical chest expansion Eyes: PERRL Musculoskeletal: Flexion and extension of cervical [spine] within normal limits Neurological: Speech clear, no gross sensory deficit Assessment and Plan *Assessment and plan (1) TMJ (dislocation of temporomandibular joint): Status: Acute Qualifiers: Encounter type: subsequent encounter Qualified Code(s): S03.00XD - Dislocation of jaw, unspecified side, subsequent encounter Category: Medical Code(s): S03.00XA - Dislocation of jaw, unspecified side, initial encounter (2) TMJ dysfunction: Status: Acute Category: Medical Code(s): M26.609 - Unspecified temporomandibular joint disorder, unspecified side (3) Left ear pain: Status: Acute Category: Medical Code(s): H92.02 - Otalgia, left ear Plan Patient is experiencing symptoms consistent with left-sided temporomandibular joint dysfunction. I did discuss with the patient that she may benefit from diclofenac versus the meloxicam. I will send in a 2-week dose of 50 mg twice daily as needed. Patient denied any heart or kidney issues. She was counseled to discontinue all other NSAIDs while taking this medication and to take it with food to minimize GI upset. Patient will also be ordered a compounded cream. Patient was counseled that she may benefit from a left TMJ joint injection. Risk and benefits were discussed with patient and she would like to proceed forward with this plan of care. Patient has tried and failed conservative therapy including continued at home stretching and exercise for long weeks. Patient has had this pain for than 2 years and has been seen by ENT with no acute findings other than TMJ dysfunction. Patient will be scheduled for a left TMJ injection. This will be done without fluoroscopic or ultrasound guidance. Patient has been instructed to contact the clinic with any concerns before the next appointment. Dr. Lowry has reviewed this note and agrees with this plan of care. This note was dictated using voice recognition software and make contain errors or omissions. All injections are used with Lidocaine, Bupivacaine and dexamethasone. Occasionally urine drug screen is needed to verify patient's compliance with our office pain contract. This is ordered based off specific treatments related to chronic pain with the potential to abuse certain medications.
== END 2024-12-14 23:59 | disposition home or self-care (01) ==
PROVIDERS: PCP Nurse Practitioner; Visit Provider Nurse Practitioner Family
DX: S03.00XD Dislocation of jaw, unspecified side, subsequent encounter (principal); M26.609 Unspecified temporomandibular joint disorder, unspecified side; H92.02 Otalgia, left ear; Z73.89 Other problems related to life management difficulty
CPT/HCPCS: 99202; G0463